=== PATIENT | male | born 1985 | race Caucasian/White ===

== ENCOUNTER 2018-04-20 13:28 | Emergency (ER) | payer OTHER ==
[2018-04-20 14:09] LABS: Absolute Lymphocytes (CBC) 2.1 K/uL (0.7-4.9); Absolute Neutrophil 11.5 K/uL (1.8-8.0); Basophils % 0.3 % (0-1.3); Eosinophils % 0.4 % (0-4.4); Hematocrit 45.9 % (39.6-49.0); Lymphocytes % 14.6 % (15.3-44.8); MCH 31.5 pg (27.0-35.0); MCV 89.7 fL (80-100); MPV 7.8 fL (7.6-11.3); Monocytes % 6.5 % (3.3-12.3); RBC Red Blood Cell Count 5.12 M/uL (4.33-5.43)
[2018-04-20 14:18] LABS: BUN Blood Urea Nitrogen 16 mg/dL (7-18); Bicarbonate 21 mmol/L (21-32); CKMB Creatine Kinase MB < 1.0 ng/mL (0.3-3.6); Creatine Phosphokinase 198 U/L (39-308); Glucose Level 103 mg/dL (74-106); Magnesium 1.8 mg/dL (1.8-2.4); Potassium 3.5 mmol/L (3.5-5.1); Sodium Level 139 mmol/L (136-145); Troponin (Emerg Dept Use Only) < 0.02 ng/mL (0.0-0.045)
[2018-04-20] MEDS ORDERED: NA CHLORIDE 0.9% 1,000 ML ONE (14:36)
--- NOTE | 2018-04-20 14:43 | ER ---
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 Denies LOC. BP 141/93 HR-116 Temp-99.5. Transition of care: patient was not received from another setting of care. Onset of symptoms was April 20, 2018. Risk Assessment: Do you want to hurt yourself or someone else? Patient reports no desire to harm self or others. Initial Sepsis Screen: Does the patient meet any 2 criteria? No. Patient's initial sepsis screen is negative. Does the patient have a suspected source of infection? No. Patient's initial sepsis screen is negative. Care prior to arrival: None. 13:19 Method Of Arrival: EMS: [facility] sv 13:19 Acuity: TOMASZ 3 sv Triage Assessment: 13:25 General: Appears uncomfortable, well developed, Behavior is calm, cooperative. Pain: sv Denies pain. EENT: No signs and/or symptoms were reported regarding the EENT system. Neuro: Level of Consciousness is awake, alert, obeys commands, Oriented to person, place, time, situation, Moves all extremities. Full function. Cardiovascular: Patient's skin is warm and dry. Rhythm is sinus tachycardia. Respiratory: Respiratory effort is even, unlabored, Respiratory pattern is regular, symmetrical. 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 Musculoskeletal: Range of motion: intact in all extremities. Historical: - Allergies: 13:32 Codeine; sv 13:32 Ceclor; sv - Immunization history:: Adult Immunizations up to date. - Social history:: Smoking status: Patient/guardian denies using tobacco, Patient uses alcohol, occasionally. - Ebola Screening: : No symptoms or risks identified at this time. Screenin:34 Abuse screen: Denies threats or abuse. Denies injuries from another. Nutritional sv screening: No deficits noted. Tuberculosis screening: No symptoms or risk factors identified. Fall Risk None identified. Assessment: 13:34 Reassessment: Patient appears in no apparent distress at this time. sv 14:30 Reassessment: Patient appears in no apparent distress at this time. No changes from sv previously documented assessment. Patient and/or family updated on plan of care and expected duration. Pain level reassessed. Patient is alert, oriented x 3, equal unlabored respirations, skin warm/dry/pink. 15:20 Reassessment: Patient appears in no apparent distress at this time. No changes from sv previously documented assessment. Patient and/or family updated on plan of care and expected duration. Pain level reassessed. Patient is alert, oriented x 3, equal unlabored respirations, skin warm/dry/pink. Vital Signs: 13:20 BP 137 / 99; Pulse 123; Resp 18; Temp 98.7(O); Pulse Ox 96% ; Weight 65.77 kg; Height 5 sv ft. 8 in. (172.72 cm); Pain 0/10; 13:46 Pulse 108; Resp 19; Pulse Ox 98% ; sv 14:00 BP 139 / 82; Pulse 103; Resp 16; Pulse Ox 99% ; sv 14:30 BP 139 / 89; Pulse 118; Resp 21; Pulse Ox 100% ; sv 15:00 BP 140 / 98; Pulse 112; Resp 19; Pulse Ox 100% ; sv 13:20 Body Mass Index 22.05 (65.77 kg, 172.72 cm) sv ED Course: 13:19 Maintain EMS IV. Dressing intact. Good blood return noted. Site clean \T\ dry. Gauge \T\ sv site: 18G R AC. 13:28 Patient arrived in ED. sv 13:29 Agustina Webster FNP-C is PHCP. kb 13:29 Madhu Seaman MD is Attending Physician. kb 13:29 Loan Lara RN is Primary Nurse. sv 13:31 Triage completed. sv 13:32 Arm band placed on right wrist. sv 13:34 Patient has correct armband on for positive identification. Placed in gown. Bed in low sv position. Side rails up X2. cafeteria monitor on. Pulse ox on. NIBP on. Door closed. Head of bed elevated. 13:38 EKG done, by outside plant technician. reviewed by Agustina NGUYEN. sm3 15:22 No provider procedures requiring assistance completed. IV discontinued, intact, sv bleeding controlled, No redness/swelling at site. Pressure dressing applied. Administered Medications: 13:31 Drug: NS 0.9% 1000 ml Route: IV; Rate: 1000 ml; Site: right antecubital; ss 14:31 Follow up: IV Status: Completed infusion; IV Intake: 1000ml ss 14:32 Drug: NS 0.9% 1000 ml Route: IV; Rate: 1000 ml; Site: right antecubital; ss 15:22 Follow up: Response: No adverse reaction; IV Status: Completed infusion; IV Intake: sv 1000ml Intake: 14:31 IV: 1000ml; Total: 1000ml. ss 15:22 IV: 1000ml; Total: 2000ml. sv Outcome: 14:43 Discharge ordered by . kb 15:23 Discharged to home ambulatory, with family. sv 15:23 Condition: stable 15:23 Discharge instructions given to patient, Instructed on discharge instructions, follow up and referral plans. Demonstrated understanding of instructions, follow-up care. 15:34 Patient left the ED. sv Signatures: Agustina Webster, BANK CREDIT CARD COLLECTION CLERK-C URSULA-Loan Quiros, RN RN sv Palak Charlton, RN RN Laura Lynch
--- NOTE | 2018-04-20 14:43 | EDPHYS ---
Physician Documentation [facility] Name: Serjio Howard Age: 32 yrs Sex: Male : 1985 Arrival Date: 04/20/2018 Time: 13:28 Bed 4 Private MD: ED Physician Madhu Seaman HPI: 04/20 13:31 This 32 yrs old Male presents to ER via EMS with complaints of Muscle cramping. 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 kb Denies loc, n/v, chest pain, shortness of breath, dizziness, or headache. . Onset: The symptoms/episode began/occurred just prior to arrival. Severity of symptoms: At their worst the symptoms were moderate in the emergency department the symptoms are unchanged. The patient has not experienced similar symptoms in the past. The patient has not recently seen a physician. Historical: - Allergies: 13:32 Codeine; sv 13:32 Ceclor; sv - Immunization history:: Adult Immunizations up to date. - Social history:: Smoking status: Patient/guardian denies using tobacco, Patient uses alcohol, occasionally. - Ebola Screening: : No symptoms or risks identified at this time. ROS: 13:31 Constitutional: Negative for fever, chills, and weight loss, Cardiovascular: Negative kb for chest pain, palpitations, and edema, Respiratory: Negative for shortness of breath, cough, wheezing, and pleuritic chest pain, Abdomen/GI: Negative for abdominal pain, nausea, vomiting, diarrhea, and constipation, Back: Negative for injury and pain, MS/Extremity: Negative for injury and deformity, Muscle cramps Skin: Negative for injury, rash, and discoloration, Neuro: Negative for headache, weakness, numbness, tingling, and seizure. Exam: 13:31 Constitutional: This is a well developed, well nourished patient who is awake, alert, kb and in no acute distress. Head/Face: Normocephalic, atraumatic. Chest/axilla: Normal chest wall appearance and motion. Nontender with no deformity. No lesions are appreciated. Cardiovascular: Regular rate and rhythm with a normal S1 and S2. No gallops, murmurs, or rubs. Normal PMI, no JVD. No pulse deficits. Respiratory: Lungs have equal breath sounds bilaterally, clear to auscultation and percussion. No rales, rhonchi or wheezes noted. No increased work of breathing, no retractions or nasal flaring. Abdomen/GI: Soft, non-tender, with normal bowel sounds. No distension or tympany. No guarding or rebound. No evidence of tenderness throughout. Skin: Warm, dry with normal turgor. Normal color with no rashes, no lesions, and no evidence of cellulitis. MS/ Extremity: Pulses equal, no cyanosis. Neurovascular intact. Full, normal range of motion. Neuro: Awake and alert, GCS 15, oriented to person, place, time, and situation. Cranial nerves II-XII grossly intact. Motor strength 5/5 in all extremities. Sensory grossly intact. Cerebellar exam normal. Normal gait. Vital Signs: 13:20 BP 137 / 99; Pulse 123; Resp 18; Temp 98.7(O); Pulse Ox 96% ; Weight 65.77 kg; Height 5 sv ft. 8 in. (172.72 cm); Pain 0/10; 13:46 Pulse 108; Resp 19; Pulse Ox 98% ; sv 14:00 BP 139 / 82; Pulse 103; Resp 16; Pulse Ox 99% ; sv 14:30 BP 139 / 89; Pulse 118; Resp 21; Pulse Ox 100% ; sv 15:00 BP 140 / 98; Pulse 112; Resp 19; Pulse Ox 100% ; sv 13:20 Body Mass Index 22.05 (65.77 kg, 172.72 cm) sv MDM: 13:29 Patient medically screened. kb 13:31 Data reviewed: vital signs, nurses notes. Data interpreted: Pulse oximetry: on room air kb is 96 %. Interpretation: normal. ED course: Pt receiving cooled IV fluids and shivering upon arrival to ER. . 14:40 Counseling: I had a detailed discussion with the patient and/or guardian regarding: the kb historical points, exam findings, and any diagnostic results supporting the discharge/admit diagnosis, lab results, the need for outpatient follow up, a family practitioner, to return to the emergency department if symptoms worsen or persist or if there are any questions or concerns that arise at home. ED course: Pt is feeling better. Denies pain, nausea, vomiting, diarrhea, cough, congestion, fever, or any other signs of infection. . 04/20 13:29 Order name: Basic Metabolic Panel; Complete Time: 14:19 kb 04/20 13:29 Order name: CBC with Diff; Complete Time: 14:12 kb 04/20 13:29 Order name: Ckmb; Complete Time: 14:19 kb 04/20 13:29 Order name: CPK; Complete Time: 14:19 kb 04/20 13:29 Order name: Magnesium; Complete Time: 14:19 kb 04/20 13:29 Order name: Troponin (emerg Dept Use Only); Complete Time: 14:19 kb 04/20 13:29 Order name: EKG; Complete Time: 13:30 kb 04/20 13:29 Order name: Cardiac monitoring; Complete Time: 13:31 kb 04/20 13:29 Order name: EKG - Nurse/Tech; Complete Time: 13:32 kb 04/20 13:29 Order name: IV Saline Lock; Complete Time: 13:32 kb 04/20 13:29 Order name: Labs collected and sent; Complete Time: 13:32 kb 04/20 15:12 Order name: Urine Dipstick--Ancillary (enter results); Complete Time: 15:33 bd 04/20 13:29 Order name: O2 Per Protocol; Complete Time: 13:32 kb 04/20 13:29 Order name: O2 Sat Monitoring; Complete Time: 13:33 kb 04/20 13:29 Order name: Urine Dipstick-Ancillary (obtain specimen); Complete Time: 15:08 kb Administered Medications: 13:31 Drug: NS 0.9% 1000 ml Route: IV; Rate: 1000 ml; Site: right antecubital; ss 14:31 Follow up: IV Status: Completed infusion; IV Intake: 1000ml ss 14:32 Drug: NS 0.9% 1000 ml Route: IV; Rate: 1000 ml; Site: right antecubital; ss 15:22 Follow up: Response: No adverse reaction; IV Status: Completed infusion; IV Intake: sv 1000ml Disposition: 04/21 07:20 Co-signature as Attending Physician, Madhu Seaman MD I agree with the assessment and agapito plan of care. Disposition: 04/20/18 14:43 Discharged to Home. Impression: Exposure to excessive natural heat, Muscle cramps. - Condition is Stable. - Discharge Instructions: Muscle Cramps and Spasms, [id number], Heat Exhaustion Information. - Medication Reconciliation Form, Thank You Letter, Antibiotic Education, Prescription Opioid Use, Work release form form. - Follow up: Emergency Department; When: As needed; Reason: Worsening of condition. Follow up: Private Physician; When: 2 - 3 days; Reason: Recheck today's complaints, Continuance of care, Re-evaluation by your physician. Signatures: Dispatcher [employer] EDNY Clement Websteristin, Loan Madrigal RN RN Madhu Alvarado MD MD cha Smirch, Shelby, RN RN ss Corrections: (The following items were deleted from the chart) 04/20 15:34 14:43 04/20/2018 14:43 Discharged to Home. Impression: Exposure to excessive natural sv heat; Muscle cramps. Condition is Stable. Discharge Instructions: Muscle Cramps and Spasms, [id number], Heat Exhaustion Information. Forms are Medication Reconciliation Form, Thank You Letter, Antibiotic Education, Prescription Opioid Use. Follow up: Emergency Department; When: As needed; Reason: Worsening of condition. Follow up: Private Physician; When: 2 - 3 days; Reason: Recheck today's complaints, Continuance of care, Re-evaluation by your physician. kb
[2018-04-20 15:33] LABS: Urine Blood NEGATIVE (NEG); Urine Glucose NEGATIVE (NEG); Urine Protein TRACE (NEG); Urine Specific Gravity 1.025 (1.005-1.030)
--- NOTE | 2018-04-20 19:24 | EKG ---
Test Date: 2018-04-20 Test Time: 13:29:13 Stations Superintendent: ERIK MEASUREMENT RESULTS: Intervals: Rate: 107 AL: 120 QRSD: 76 QT: 312 QTc: 416 [place]: P: 77 AL: 120 QRS: 51 T: 39 INTERPRETIVE STATEMENTS: Sinus tachycardia Otherwise normal ECG No previous ECG available for comparison Electronically Signed On 04-20-18 19:22:45 CDT by Balaji Gómez
== END 2018-04-20 15:34 | disposition home or self-care (01) ==
LOC: ER 13:28
DX: R25.2 Cramp and spasm (principal); X32.XXXA Exposure to sunlight, initial encounter; Y93.89 Activity, other specified; Y92.69 Other specified industrial and construction area as the place of occurrence of the external cause; Y99.0 Civilian activity done for income or pay
CPT/HCPCS: 36415; 80048; 81003; 82550; 82553; 83735; 84484; 85025; 93005; 96360; 96361; 99284; J7030